=== PATIENT | female | born 1965 | race Caucasian/White ===

== ENCOUNTER → 2018-05-14 | Outpatient (CLI) | payer OTHER ==
[~2018-05-14] VITALS: Ht 172.7 cm; Wt 90.7 kg
[~2018-05-14] MED LIST: ADDERALL XR 2020 MG PO; AMERGE2.5 MG PO; ASPIR 8181 MG PO; COREG6.25 MG PO; COZAAR 25 MG TA25 M2 PO; CRESTOR10 MG PO; OZEMPIC1 MG/0.75 INJECTION; PROGESTERONE200 MG PO; VASCEPA1 GM PO; WELLBUTRIN XL300 MG PO; XANAX 0.5 MG0.5 MG PO
[2018-05-14 07:28] VITALS: BP 115/59
[2018-05-14 07:37] LABS: HEMATOCRIT 41.7 % (37.0-47.0); HEMOGLOBIN 14.4 gm/dL (12.0-15.0); MCH 31.3 pg (26.0-34.0); MCHC 34.6 g/dL (28.0-37.0); MCV 90.6 fL (80.0-100.0); RBC 4.6 mil/uL (4.20-5.00); RDW 13.2 % (10.5-14.5); WBC 6.4 thou/uL (4.0-11.0)
[2018-05-14 07:46] LABS: CALCIUM 8.9 mg/dL (8.5-10.1); CREATININE 0.8 mg/dL (0.6-1.0); POTASSIUM 3.7 mmol/L (3.5-5.1)
--- NOTE | 2018-05-14 08:52 | EKG ---
[place] [address] [employer] [place] [address] ELECTROCARDIOGRAM REPORT Name: KRISTEL QUESADA [facility] [id number] ������������������ Admission: 05/14/18 ������������������ Attend Phys: Terry Payan MD, Discharge: ������������������ Date of : 63 Report #: [id number] ����������������������������������������������������������������� [id number] THIS REPORT FOR: //name// [facility] Test Date: 2018-05-14 Test Time: 07:22:49 Pat Name: KRISTEL QUESADA Department: Room: Gender: F Etl Consultant: Sagar BROWN : 1965 Requested By: Terry Payan Order Number: [id number] MD: Evelio Wilson Measurements Intervals [place] Rate: 88 P: 58 VA: 146 QRS: 45 QRSD: 102 T: 30 QT: 353 QTc: 427 Interpretive Statements Sinus rhythm No previous ECG available for comparison Electronically Signed On 05-14-2018 8:52:04 CDT by Evelio Wilson [email or web address] ��������������������������������������������� <ELECTRONICALLY SIGNED> ���������������������������������������� By: Evelio Wilson MD ��������������������������������������������� 05/14/18 0852 0722 07 Evelio Wilson MD /LICO
--- NOTE | 2018-05-14 17:45 | CATHLAB ---
[facility] [place] [place] [address] INVASIVE PROCEDURE REPORT Name: KRISTEL QUESADA Room #: REG Florentino#: [id number] ������������� Admission: 05/14/18 ������������� Attend Phys: Terry Payan, Discharge: ��� ������������� ��� Date of : 63 Date of Service: 05/14/18 1745 �� Report #: [id number] �������� ��������������������������������������������[id number] THIS REPORT FOR: //name// APPROVED REPORT Study performed: 05/14/2018 08:54:32 Patient Details Patient Status: Out-Patient Room #: The patient is a 52 year-old female Event Personnel Terry Payan Inside Account Executive, Christina Mcmillan RN RN, Rossana Lovett RTR, Apryl Banuelos David Monitor Procedures Performed Right and Left Heart Cath w/or w/o Coronarie [id number] [facility] Aortogram Abdominal Peripheral Angio [id number] Indication Chest pain Procedure Narrative The Right Groin^ was infiltrated with 1% Lidocaine subcutaneous anesthesia. A PINNACLE 6FR Sheath #[id number] sheath was inserted into the RFA^. Coronary angiography was performed using coronary diagnostic catheters. The right coronary system was accessed and visualized with a JR4 catheter. The left coronary system was accessed and visualized with a JL4 catheter. The left ventricle was accessed and visualized with a PIGTAIL catheter. Left ventriculogram was performed in 30 degree projection. An aortogram of the abdominal aorta was performed. Closure device was deployed with a 6 Fr MYNXGRIP 6/7F #[id number]. The patient tolerated the procedure well and there were no complications associated with the procedure. There was no hematoma. Intraoperative Conscious Sedation Sedation start time: 8.57 Case end Time: 9.40 Fentanyl 25 mcg Versed 1 mg Fluoro Time: 4.8 minutes Dose: DAP 7408 cGycm2 902 mGy Contrast Type and Amount: Omnipaque 115 ml [facility] [place] [address] INVASIVE PROCEDURE REPORT Name: KRISTEL QUESADA [facility] [id number] ������������� Admission: 05/14/18 ������������� Attend Phys: Terry Payan, Discharge: ��� ������������� ��� Date of : 63 Date of Service: 05/14/18 1745 �� Report #: [id number] �������� ��������������������������������������������[id number] Hemodynamics The right atrial mean pressure is 8 mmHg. The right ventricular pressure is 24/7 mmHg. The pulmonary artery pressure is 25/7 mmHg with a mean of 15 mmHg. The mean pulmonary capillary wedge pressure is 11 mmHg. The aortic pressure is 101/61 mmHg with a mean of 56 mmHg. The left ventricular pressure is 102/10 mmHg with a mean of mmHg. The left ventricular end diastolic pressure is 15 mmHg. The cardiac output using thermo method is 4.55 L/min. The cardiac index using thermo method is 2.44 L/min/m2. Conclusion #1 left main mildly disease giving rise to LAD and circumflex #2 LAD mildly disease extends to the apex. Relatively small and attenuated vessel at the distal portion. #3 circumflex OM nondominant but moderate distribution is widely patent. #4 larger dominant right coronary artery with minimal irregularity. #5 mild global hypokinesis with normal left ventricular size EF 45-50% range. (This LV function appears improved over the echo findings) #6 abdominal aorta is intact with mild irregularity no aneurysm. #7 successful right heart catheterization with cardiac output by thermodilution. Pulmonary pressures and cardiac output appear normal. Recommendations and plan: Patient LV dysfunction appears improved. Hemodynamically she is stable and not volume overloaded. We will continue aggressive risk factor modification fluid sodium restriction and current medical therapy. ��������������������������������������������� <ELECTRONICALLY SIGNED> ���������������������������������������� By: Terry Payan MD, FACC ��������������������������������������������� 05/14/18 1745 1745 1745 Terry Payan MD, FACC /INF
== END | disposition home or self-care (01) ==
LOC: CATH 06:30
PROVIDERS: Internal Medicine Cardiovascular Disease
DX: I25.10 Atherosclerotic heart disease of native coronary artery without angina pectoris (principal); Z98.890 Other specified postprocedural states; F98.8 Other specified behavioral and emotional disorders with onset usually occurring in childhood and adolescence; F43.10 Post-traumatic stress disorder, unspecified; Z82.49 Family history of ischemic heart disease and other diseases of the circulatory system; E78.5 Hyperlipidemia, unspecified; I42.9 Cardiomyopathy, unspecified

== ENCOUNTER → 2019-10-14 | Outpatient (CLI) | payer OTHER | LOC: SJCVCIMAG 09:43 | PROVIDERS: ATTEND Internal Medicine Cardiovascular Disease | DX: I25.10 Atherosclerotic heart disease of native coronary artery without angina pectoris (principal); I42.9 Cardiomyopathy, unspecified; E78.2 Mixed hyperlipidemia; I51.89 Other ill-defined heart diseases ==